=== PATIENT | female | born 1985 | race African-American/Black ===

== ENCOUNTER 2020-11-14 00:31 | Emergency (ER) | payer SELFPAY ==
[~2020-11-14] VITALS: Ht 165.1 cm; Wt 68.0 kg
[2020-11-14 00:36] VITALS: BP 128/91
[2020-11-14] MEDS ORDERED: SODIUM CHLORIDE 0.9% 1,000 ML IV ONE (01:00)
== END 2020-11-14 03:51 | disposition left against medical advice (07) ==
LOC: ER 00:31
DX: R10.30 Lower abdominal pain, unspecified (principal); F91.8 Other conduct disorders
CPT/HCPCS: 93005; 99283; J7030